=== PATIENT | female | born 1975 | race Caucasian/White ===

== ENCOUNTER → 2016-07-18 | Outpatient (CLI) | payer OTHER ==
--- NOTE | 2016-07-18 10:41 | CT ---
EXAMINATION TYPE: CT abdomen pelvis wo con DATE OF EXAM: 07/18/2016 10:07 AM COMPARISON: 03/09/2010 INDICATION: Lt flank pain, bladder pain DLP: 479.4 mGycm, Automated exposure control for dose reduction was used. CONTRAST: None Study performed without Oral Contrast TECHNIQUE: Axial images were obtained from above the diaphragm to the pubic rami in the axial plane a t 5 mm thick sections. Reconstructed images are reviewed on the computer in the coronal plane. FINDINGS: Limited CT sections are obtained the lung bases. The lung bases are clear. CT ABDOMEN: There are mesenteric fat containing anterior abdominal hernia in the epigastric region wi th an opening of 2.8 cm. Liver: There is a 2.1 cm hypodensity measuring 12 Hounsfield units adjacent to the right kidney. This appears to be a hepatic cyst on the coronal plane images although an exophytic renal cyst could be w ithin the differential in the axial plane. Spleen: Normal Pancreas: Normal Adrenal glands: The adrenal glands are normal. Gallbladder: Surgically absent Kidneys: No masses are evident. No hydronephrosis is present. Possible exophytic cyst may be at the inferior pole right kidney Aorta: Normal Inferior vena cava: Normal. CT PELVIS: Loops of bowel within the abdomen and pelvis are normal. Couple of small diverticuli may be withi n the sigmoid colon. Appendix: Not clearly identified. There may be surgical suture in the right lower quadrant. Urinary bladder: Decompressed with limited evaluation. Genitourinary structures: Uterus is not identified. Adnexal regions. Within normal limits. Some very minimal pelvic fluid may be present. This could be physiologic. Osseous structures: No suspicious lytic or sclerotic lesions. Degenerative sacroiliac joint changes a re present. Facet degenerative changes are present. IMPRESSIONS: 1. Hepatic cyst versus exophytic renal cyst. This area has enlarged from 2009. 2. Small epigastric mesenteric fat containing abdominal wall hernia. This was present previously.
== END | disposition home or self-care (01) ==
LOC: RADCTMAIN 09:49
PROVIDERS: ATTEND Physician Assistant Medical
DX: K43.9 Ventral hernia without obstruction or gangrene (principal); R10.9 Unspecified abdominal pain; Z87.442 Personal history of urinary calculi
CPT/HCPCS: 74176

== ENCOUNTER → 2016-08-06 | Outpatient (CLI) | payer OTHER ==
--- NOTE | 2016-08-06 22:28 | MR ---
MR abdomen with and without contrast HISTORY: Abnormal findings, liver disease Correlation to CT abdomen pelvis 18 July 2016 Multiplanar multisequence and postcontrast images obtained through the abdomen following 14 cc MultiH ance IV. Patient is status post cholecystectomy. The cyst within the right lobe of the liver is again noted an d shows a stable appearance measuring approximately 2.9 cm in greatest dimension showing a bilobed ap pearance. There is no biliary ductal dilation. The liver is enlarged. Signal drop on out of phase roxana ging within the liver suggests fatty infiltration of the liver. No abnormal enhancement. The spleen i s unremarkable. The kidneys and adrenal glands, pancreas are unremarkable. No retroperitoneal adenopa thy, or ascites. Small ventral abdominal wall hernia contains fat. IMPRESSION: Simple hepatic cyst. Hepatomegaly, possible fatty infiltration of the liver. Postop barry luu. Anterior abdominal wall hernia.
== END | disposition home or self-care (01) ==
LOC: RADMRIMAIN 20:43
PROVIDERS: ATTEND Family Medicine
DX: K76.89 Other specified diseases of liver (principal); R16.0 Hepatomegaly, not elsewhere classified; K43.9 Ventral hernia without obstruction or gangrene; Z98.890 Other specified postprocedural states
CPT/HCPCS: 74183; A9577

== ENCOUNTER 2016-10-24 12:19 | Emergency (ER) | payer OTHER ==
[2016-10-24 12:42] VITALS: RESP 16
[2016-10-24] MEDS ORDERED: SODIUM CHLORIDE 0.9% 2,000 ML IV STA (13:11)
--- NOTE | 2016-10-24 13:20 | ED ---
Abdominal Pain HPI - General Chief Complaint: Abdominal Pain Stated Complaint: Abd Pain Time Seen by Provider: 10/24/16 12:53 Source: patient, family, RN notes reviewed Mode of arrival: wheelchair Limitations: no limitations - History of Present Illness Initial Comments: This a 40-year-old female presented emergency Department chief complaint of abdominal pain, nausea diarrhea. Patient states her symptoms, started 2 days ago. Patient states that she's concerned as she has a new puppy diagnosed with Giardia. She states she's having extreme loose watery diarrhea. Patient states that she's had multiple episodes daily denies any melena or hematochezia. Patient denies any vomiting including his emesis or coffee- ground emesis. Patient denies fever or chills. She states that she's having spasms in her epigastric region and also some back pain. Patient states that she felt that she had some tachycardia yesterday in which she states she sees Dr. Bobby for but denies any chest pain or palpitations at this time. Patient denies any dysuria hematuria. 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 - Related Data Home Medications Medication Instructions Recorded Confirmed Ibuprofen [Motrin] 800 mg PO Q8HR PRN 10/06/14 10/24/16 ALPRAZolam [Xanax] 0.25 mg PO DAILY PRN 10/25/14 10/24/16 Escitalopram Oxalate [Lexapro] 10 mg PO HS 10/24/16 10/24/16 Previous Rx's Medication Instructions Recorded Dicyclomine [Bentyl] 20 mg PO TID #30 tablet 10/24/16 metroNIDAZOLE [Flagyl] 500 mg PO TID #21 tab 10/24/16 Allergies Allergy/AdvReac Type Severity Reaction Status Date / Time codeine Allergy Unknown Verified 10/24/16 13:01 latex Allergy Swelling/Bu Verified 10/24/16 13:01 rning morphine Allergy Nausea & Verified 10/24/16 13:01 Vomiting naproxen Allergy Swelling Verified 10/24/16 13:01 Review of Systems ROS Statement: Those systems with pertinent positive or pertinent negative responses have been documented in the HPI. ROS Other: All systems not noted in ROS Statement are negative. Past Medical History Past Medical History: Hearing Disorder / Deafness, Mitral Valve Prolapse (MVP), Osteoarthritis (OA) Additional Past Medical History / Comment(s): TRICUSPID PROLAPSE, SL MVP; PULMONARY HTN. WAS HAVING PROB W/ DIZZYNESS, BALANCE PROB - RESOLVED; SOME DYSPNEA OCC. LATER FOUND SHE HAD MIDDLE EAR INFECTION, COMPLETED PO AB RX. SOME DECR HEARING IN LT EAR. KIDNEY STONES FREQ. HAS VARICOSE VEINS History of Any Multi-Drug Resistant Organisms: None Reported Past Surgical History: Appendectomy, Cholecystectomy, Hernia Repair, Hysterectomy Additional Past Surgical History / Comment(s): removed kidney stone Past Anesthesia/Blood Transfusion Reactions: Motion Sickness, Postoperative Nausea & Vomiting (PONV) Past Psychological History: Anxiety, Depression, Panic Disorder Smoking Status: Never smoker Past Alcohol Use History: None Reported Past Drug Use History: None Reported - Past Family History Father Family Medical History: Cancer, Coronary Artery Disease (CAD), Deep Vein Thrombosis (DVT) Additional Family Medical History / Comment(s): stroke, quadrupel bypass, carotid surgery - FROM BLOOD CLOT FROM CAROTID TO BRAIN. Mother Additional Family Medical History / Comment(s): ANXIETY General Exam Limitations: no limitations General appearance: alert, in no apparent distress Head exam: Present: atraumatic, normocephalic, normal inspection Eye exam: Present: normal appearance, PERRL, EOMI. Absent: scleral icterus, conjunctival injection, periorbital swelling Respiratory exam: Present: normal lung sounds bilaterally. Absent: respiratory distress, wheezes, rales, rhonchi, stridor Cardiovascular Exam: Present: regular rate, normal rhythm, normal heart sounds. Absent: systolic murmur, diastolic murmur, rubs, gallop, clicks GI/Abdominal exam: Present: soft, tenderness (Mild epigastric), normal bowel sounds. Absent: distended, guarding, rebound, rigid Back exam: Absent: CVA tenderness (R), CVA tenderness (L) Neurological exam: Present: alert, CN II-XII intact Skin exam: Present: warm, dry, intact, normal color. Absent: rash Course Vital Signs 10/24/16 12:40 Temperature 98.2 F Pulse Rate 94 Respiratory 16 Rate Blood Pressure 125/74 O2 Sat by Pulse 97 Oximetry Medical Decision Making - Medical Decision Making 40-year-old female presented for diarrhea abdominal discomfort. Patient is currently him some bowel spasms related to her diarrhea. She does feel better after Bentyl. Patient has concerns about Giardia. Patient be given Flagyl at this time. Patient C. diff testing is not back Flagyl as prescribed. Patient will follow-up with primary care physician for recheck and results. - Lab Data Result diagrams: 10/24/16 13:40 10/24/16 13:40 Lab Results 10/24/16 10/24/16 10/24/16 Range/Units 13:40 13:40 14:02 WBC 10.4 (3.8-10.6) k/uL RBC 5.24 (3.80-5.40) m/uL Hgb 16.3 H (11.4-16.0) gm/dL Hct 49.0 H (34.0-46.0) % MCV 93.5 (80.0-100.0) fL MCH 31.1 (25.0-35.0) pg MCHC 33.3 (31.0-37.0) g/dL RDW 12.5 (11.5-15.5) % Plt Count 221 (150-450) k/uL Neutrophils % (Manual) 79.0 % Band Neutrophils % 1.0 % Lymphocytes % (Manual) 13.0 % Monocytes % (Manual) 6.0 % Eosinophils % (Manual) 1.0 % Neutrophils # (Manual) 8.3 H (1.3-7.7) k/uL Lymphocytes # (Manual) 1.4 (1.0-4.8) k/uL Monocytes # (Manual) 0.6 (0-1.0) k/uL Eosinophils # (Manual) 0.1 (0-0.7) k/uL Nucleated RBCs 0 (0-0) /100 WBC Manual Slide Review Performed RBC Morphology Normal Sodium 140 (137-145) mmol/L Potassium 3.5 (3.5-5.1) mmol/L Chloride 107 (98-107) mmol/L Carbon Dioxide 21 L (22-30) mmol/L Anion Gap 12 mmol/L BUN 11 (7-17) mg/dL Creatinine 0.67 (0.52-1.04) mg/dL Est GFR (MDRD) Af Amer >60 (>60 ml/min/1.73 sqM) Est GFR (MDRD) Non-Af >60 (>60 ml/min/1.73 sqM) Glucose 95 (74-99) mg/dL Calcium 9.0 (8.4-10.2) mg/dL Total Bilirubin 0.6 (0.2-1.3) mg/dL AST 22 (14-36) U/L ALT 23 (9-52) U/L Alkaline Phosphatase 75 (38-126) U/L Total Protein 8.0 (6.3-8.2) g/dL Albumin 4.2 (3.5-5.0) g/dL Amylase 49 (30-110) U/L Lipase 42 (23-300) U/L Urine Color Yellow Urine Appearance Cloudy H (Clear) Urine pH 5.5 (5.0-8.0) Ur Specific [place] 1.018 (1.001-1.035) Urine Protein 1+ H (Negative) Urine Glucose (UA) Negative (Negative) Urine Ketones 2+ H (Negative) Urine Blood Trace H (Negative) Urine Nitrite Negative (Negative) Urine Bilirubin Negative (Negative) Urine Urobilinogen <2.0 (<2.0) mg/dL Ur Leukocyte Esterase Negative (Negative) Urine RBC 1 (0-5) /hpf Urine WBC 4 (0-5) /hpf Ur Squamous Epith Cells 22 H (0-4) /hpf Urine Bacteria Occasional H (None) /hpf Urine Mucus Occasional H (None) /hpf Disposition Clinical Impression: Abdominal pain, Diarrhea Disposition: HOME SELF-CARE Condition: Stable Instructions: Abdominal Pain (ED) Additional Instructions: Please return to the Emergency Department if symptoms worsen or any other concerns. Prescriptions: Dicyclomine [Bentyl] 20 mg PO TID #30 tablet metroNIDAZOLE [Flagyl] 500 mg PO TID #21 tab Time of Disposition: 15:06
[2016-10-24 14:03] LABS: Aty Lym Flag Slight; CH 32.3; CHCM 34.7; HDW 2.46; HGB 16.3 gm/dL (11.4-16.0); MCH 31.1 pg (25.0-35.0); MCHC 33.3 g/dL (31.0-37.0); MCV 93.5 fL (80.0-100.0); Mean Platelet Volume 7.7; RBC 5.24 m/uL (3.80-5.40); RDW 12.5 % (11.5-15.5); WBC 10.4 k/uL (3.8-10.6); WBC (Perox) 9.86
[2016-10-24 14:06] LABS: ALT 23 U/L (9-52); AST 22 U/L (14-36); Alkaline Phosphatase 75 U/L (38-126); Amylase 49 U/L (30-110); Anion Gap 12 mmol/L; Blood Urea Nitrogen 11 mg/dL (7-17); Carbon Dioxide 21 mmol/L (22-30); Chloride 107 mmol/L (98-107); Glucose 95 mg/dL (74-99); Non-African American GFR(MDRD) >60 (>60 ml/min/1.73 sqM); Potassium 3.5 mmol/L (3.5-5.1); Sodium 140 mmol/L (137-145); Total Bilirubin 0.6 mg/dL (0.2-1.3)
[2016-10-24 14:19] LABS: Appearance,Urine Cloudy (Clear); Bacteria,Urine Occasional /hpf; Bilirubin,Urine Negative (Negative); Glucose,Urine (UA) Negative (Negative); Ketones,Urine 2+ (Negative); Leukocyte Esterase,Urine Negative (Negative); Mucus,Urine Occasional /hpf; Nitrite,Urine Negative (Negative); PH, Urine 5.5 (5.0-8.0); Particle Count 11570; Protein,Urine 1+ (Negative); RBC,Urine 1 /hpf (0-5); Specific Gravity,Urine 1.018 (1.001-1.035); Squamous Epithelial Cell,Urine 22 /hpf (0-4); UA Billing (MACRO vs. MICRO) MICRO; Urobilinogen,Urine <2.0 mg/dL (<2.0); WBC,Urine 4 /hpf (0-5)
--- NOTE | 2016-10-24 14:27 | XR ---
EXAMINATION TYPE: XR KUB DATE OF EXAM: 10/24/2016 2:14 PM COMPARISON: June 24, 2012 HISTORY: Pain TECHNIQUE: Single supine KUB image of the abdomen is obtained FINDINGS: Small bowel demonstrates no evidence for dilatation or air fluid levels. Gas and fecal material is seen in non-distended colon. No convincing evidence for pneumoperitoneum. No unusual calcifications. The lung bases are clear. Cholecystectomy clips noted. The osseous structures are intact. IMPRESSION: 1. Overall nonobstructive bowel gas pattern.
[2016-10-24 14:29] LABS: Add Differential Manual Differential
[2016-10-24] MEDS ORDERED: DICYCLOMINE 20 MG TAB PO STA (14:29)
[2016-10-24 14:33] LABS: Manual Review Performed; Nucleated Red Blood Cells 0 /100 WBC (0-0); RBC Morphology Normal; Total Cells Counted 100
[2016-10-24 15:47] VITALS: BP 116/56; PULSE 76; TEMP 98.8
== END 2016-10-24 15:46 | disposition home or self-care (01) ==
LOC: EC 12:19
DX: R19.7 Diarrhea, unspecified (principal); R10.13 Epigastric pain; R11.0 Nausea; M54.9 Dorsalgia, unspecified; F41.9 Anxiety disorder, unspecified; F32.9 Major depressive disorder, single episode, unspecified; Z79.899 Other long term (current) drug therapy; Z88.5 Allergy status to narcotic agent; Z88.6 Allergy status to analgesic agent; Z91.040 Latex allergy status; Z90.49 Acquired absence of other specified parts of digestive tract
CPT/HCPCS: 36415; 74000; 80053; 81001; 82150; 83690; 85025; 87045; 87046; 87324; 87329; 89055; 96360; 96361; 99284

== ENCOUNTER 2018-12-17 18:34 | Inpatient (IN) | payer OTHER ==
[2018-12-17] MEDS ORDERED: ASPIRIN 81 MG PO STA (18:57)
[2018-12-17] MEDS ORDERED: NITROGLYCERIN SL TABS 0.4 MG TAB SUBLINGUAL STA (18:57)
[2018-12-17 19:16] LABS: Basophils # (A) 0.1 k/uL (0-0.2); Basophils % (A) 1 %; Eosinophils # (A) 0.1 k/uL (0-0.7); Eosinophils % (A) 1 %; HCT 46.7 % (34.0-46.0); HGB 15.3 gm/dL (11.4-16.0); Lymphocytes # (A) 2.2 k/uL (1.0-4.8); Lymphocytes % (A) 21 %; MCH 30.3 pg (25.0-35.0); MCHC 32.8 g/dL (31.0-37.0); MCV 92.3 fL (80.0-100.0); Monocytes # (A) 0.7 k/uL (0-1.0); Monocytes % (A) 6 %; Neutrophils # (A) 7.3 k/uL (1.3-7.7); Neutrophils % (A) 68 %; Platelet Count 279 k/uL (150-450); RBC 5.05 m/uL (3.80-5.40); RDW 12.3 % (11.5-15.5); WBC 10.6 k/uL (3.8-10.6)
[2018-12-17 19:25] LABS: ALT 25 U/L (9-52); AST 19 U/L (14-36); African American GFR (CKD) >90 (>60 ml/min/1.73 sqM); Albumin 4.2 g/dL (3.5-5.0); Alkaline Phosphatase 58 U/L (38-126); Anion Gap 8 mmol/L; Blood Urea Nitrogen 11 mg/dL (7-17); Calcium 9.1 mg/dL (8.4-10.2); Carbon Dioxide 25 mmol/L (22-30); Chloride 105 mmol/L (98-107); Glucose 89 mg/dL (74-99); Lipase 45 U/L (23-300); Magnesium 1.8 mg/dL (1.6-2.3); Potassium 3.8 mmol/L (3.5-5.1); Sodium 138 mmol/L (137-145); Total Bilirubin 0.5 mg/dL (0.2-1.3); Total Protein 7.1 g/dL (6.3-8.2)
[2018-12-17 19:28] LABS: D-Dimer 0.25 mg/L FEU (<0.60); INR 0.9 (<1.2); Partial Thromboplastin Time 23.9 sec (22.0-30.0)
--- NOTE | 2018-12-17 19:54 | ED ---
Chest Pain HPI - General Chief Complaint: Chest Pain Stated Complaint: Chest pain Time Seen by Provider: 12/17/18 18:47 Source: patient, RN notes reviewed Mode of arrival: wheelchair Limitations: no limitations - History of Present Illness Initial Comments: This a 43-year-old female who presents with complaints of chest pain. She states she's been having intermittent episodes of this with palpitations or last several weeks. They getting worse she denies discomfort radiating down her left arm some to her jaw some to her back she states it feels like a heaviness. It is worse is 10/10 in severity currently is 6/10 she states she feels anxious and short of breath with it no fevers chills nausea vomiting sweats or other symptoms. She has no personal history of heart disease does not smoke cigarettes does not drink alcohol no family history of early heart disease reported. She has had hysterectomy and does not use control pills. No other modifying factors no recent strenuous activity he could've strained her upper chest wall. MD Complaint: chest pain - Related Data Home Medications Medication Instructions Recorded Confirmed Ibuprofen [Motrin] 800 mg PO Q8HR PRN 10/06/14 12/17/18 ALPRAZolam [Xanax] 0.25 mg PO DAILY PRN 10/25/14 12/17/18 Atenolol [Tenormin] 25 mg PO DAILY 12/17/18 12/17/18 Escitalopram [Lexapro] 20 mg PO DAILY 12/17/18 12/17/18 valACYclovir HCL [Valtrex] 2,000 mg PO BID PRN 12/17/18 12/17/18 Allergies Allergy/AdvReac Type Severity Reaction Status Date / Time codeine Allergy Unknown Verified 12/17/18 19:09 latex Allergy Swelling/Bu Verified 12/17/18 19:09 rning morphine Allergy Nausea & Verified 12/17/18 19:09 Vomiting naproxen Allergy Swelling Verified 12/17/18 19:09 Review of Systems ROS Statement: Those systems with pertinent positive or pertinent negative responses have been documented in the HPI. ROS Other: All systems not noted in ROS Statement are negative. EKG Findings - EKG Results: EKG: interpreted by SYLVIA, sinus rhythm (Sinus rhythm a 68 appear interval 166 QRS duration 98 QT since QTC 426/[address]-T wave changes) Past Medical History Past Medical History: Hearing Disorder / Deafness, Mitral Valve Prolapse (MVP), Osteoarthritis (OA) Additional Past Medical History / Comment(s): TRICUSPID PROLAPSE, SL MVP; PULMONARY HTN. WAS HAVING PROB W/ DIZZYNESS, BALANCE PROB - RESOLVED; SOME DYSPNEA OCC. LATER FOUND SHE HAD MIDDLE EAR INFECTION, COMPLETED PO AB RX. SOME DECR HEARING IN LT EAR. KIDNEY STONES FREQ. HAS VARICOSE VEINS History of Any Multi-Drug Resistant Organisms: None Reported Past Surgical History: Appendectomy, Cholecystectomy, Hernia Repair, Hysterectomy Additional Past Surgical History / Comment(s): removed kidney stone Past Anesthesia/Blood Transfusion Reactions: Motion Sickness, Postoperative Nausea & Vomiting (PONV) Past Psychological History: Anxiety, Depression, Panic Disorder Smoking Status: Never smoker Past Alcohol Use History: None Reported Past Drug Use History: None Reported - Past Family History Father Family Medical History: Cancer, Coronary Artery Disease (CAD), Deep Vein Thrombosis (DVT) Additional Family Medical History / Comment(s): stroke, quadrupel bypass, carotid surgery - FROM BLOOD CLOT FROM CAROTID TO BRAIN. Mother Additional Family Medical History / Comment(s): ANXIETY General Exam - General Exam Comments Initial Comments: This is a well-developed well-nourished awake alert oriented 3 female Limitations: no limitations General appearance: alert, anxious Head exam: Present: atraumatic, normocephalic, normal inspection Eye exam: Present: normal appearance, PERRL, EOMI. Absent: scleral icterus, conjunctival injection, periorbital swelling ENT exam: Present: normal exam, mucous membranes moist Neck exam: Present: normal inspection. Absent: tenderness, meningismus, lymphadenopathy Respiratory exam: Present: normal lung sounds bilaterally. Absent: respiratory distress, wheezes, rales, rhonchi, stridor Cardiovascular Exam: Present: regular rate, normal rhythm, normal heart sounds. Absent: systolic murmur, diastolic murmur, rubs, gallop, clicks GI/Abdominal exam: Present: soft, normal bowel sounds. Absent: distended, tenderness, guarding, rebound, rigid Extremities exam: Present: normal inspection, full ROM, normal capillary refill. Absent: tenderness, pedal edema, joint swelling, calf tenderness Back exam: Present: normal inspection Neurological exam: Present: alert, oriented X3, CN II-XII intact Psychiatric exam: Present: normal affect, normal mood Skin exam: Present: warm, dry, intact, normal color. Absent: rash Course Vital Signs 12/17/18 12/17/18 12/17/18 18:39 19:05 19:42 Temperature 98.5 F Pulse Rate 83 70 Respiratory 18 18 Rate Blood Pressure 110/68 127/78 119/63 O2 Sat by Pulse 98 97 Oximetry - Reevaluation(s) Reevaluation #1: 12/17/18 20:49 I did reevaluate the patient after the initial treatment she did feel totally relieved of all her issues after one nitroglycerin no more chest tightness shortness breath no more dizziness no other symptoms. She feels better now that she has since 4 days ago when she believes the symptoms and she started. Chest Pain MDM - MDM I did review the imaging and report no acute findings are seen. Patient did get total resolution of her symptoms after nitroglycerin. I did have a long discussion with her family members regarding the findings patient will be admitted for cardiology consultation. The presentation is consistent with acute coronary syndrome/unstable angina I did discuss case with Dr. Hernandez. Critical Care Time Critical Care Time: Yes Critical Care Time: 31 minutes of critical care time which includes initial presentation with hist ory physical labs x-rays multiple re-evaluations patient response to therapy discuss with the patient family regarding findings discussion with the main physician admission orders and documentation of the above Disposition Clinical Impression: Unstable angina pectoris, Acute coronary syndrome Disposition: ADMITTED IP TO THIS HOSP Condition: Stable Referrals: Jose Diaz DO [Primary Care Provider] - 1-2 days
--- NOTE | 2018-12-17 19:59 | XR ---
EXAMINATION TYPE: XR chest 2V DATE OF EXAM: 12/17/2018 COMPARISON: NONE HISTORY: 10/05/2014 TECHNIQUE: Frontal and lateral views of the chest are obtained. FINDINGS: Heart and mediastinum are normal. Lungs are clear. Diaphragm is normal. Bony thorax is nor mal. IMPRESSION: Normal chest. No change.
[2018-12-17] MEDS ORDERED: ACETAMINOPHEN TAB 325 MG TAB PO PRN (20:50)
[2018-12-17] MEDS ORDERED: HEPARIN SODIUM,PORCINE 5,000 UNIT/ML 1 ML VIAL IV ONE (20:50)
[2018-12-17] MEDS ORDERED: NITROGLYCERIN SL TABS 0.4 MG TAB SUBLINGUAL PRN (20:50)
[2018-12-17] MEDS ORDERED: ALPRAZolam 0.25 MG TAB PO PRN (20:53)
[2018-12-17] MEDS ORDERED: HEPARIN SOD,PORK IN 0.45% NACL 25,000 UNIT in 0.45% NACL 1 250ML.BAG IV SCH (21:00)
[2018-12-17] MEDS: SODIUM CHLORIDE 0.9% 1,000 ML IV SCH (21:13)
[2018-12-17 22:46] VITALS: BMI 34.0
[2018-12-18 04:05] LABS: Cholesterol 177 mg/dL (<200); HDL Cholesterol 35 mg/dL (40-60); LDL Cholesterol,Calculated 107 mg/dL (0-99); Triglycerides 174 mg/dL (<150)
[2018-12-18] MEDS: NITROGLYCERIN OINT 1 INCH/GM PACKET TOPICAL SCH ×5 (05:14→23:44)
[2018-12-18] MEDS ORDERED: ASPIRIN 325 MG TAB PO SCH (09:00)
[2018-12-18] MEDS ORDERED: ATORVASTATIN 80 MG TAB PO SCH (09:00)
--- NOTE | 2018-12-18 12:07 | CONS ---
CONSULTATION Mrs. Hammonds is a 43-year-old female who is seen for the evaluation of chest pain. This patient gives a history that for last 1 month to 6 weeks she has been having intermittent heart fluttering and palpitations. She feels that her heart is skipping beats and then she has a flushed feeling. She also felt quite anxious. Over the last couple of days, she has been having intermittent chest pressure with pressure in the back and the pressure in the arm, which comes and goes. It is not related to exertion. In view of the recurrent chest discomfort, she came to the hospital and is admitted. Patient denied any nausea, vomiting or any other symptoms. Patient does not have any prior history of coronary artery disease. She does not smoke. Her cholesterol is normal. This patient was evaluated about 3 to 4 years ago with symptoms of dizziness and palpitations and patient had extensive workup done, which was unremarkable. The patient's father had heart attack at the age of 72. Patient denies any history of recent syncope. She had a tilt-table test done in the past, which was normal. PATIENT'S HOME MEDICATIONS INCLUDE: Motrin, Xanax, Tenormin, Lexapro, Valtrex. PAST MEDICAL HISTORY: Includes history of possible mitral valve prolapse, history of mild pulmonary hypertension. Patient had a echocardiogram done about a couple of years ago in [place], appendicectomy, cholecystectomy, hernia repair and hysterectomy. History of motion sickness. Postoperatively, nausea and vomiting. PSYCHOLOGICAL HISTORY: History of anxiety, depression and panic disorder. SMOKING HISTORY: Patient was never a smoker. PHYSICAL EXAMINATION: Reveals a 43-year-old female who is not in any acute distress. Blood pressure is 110/68 mmHg. HEENT examination is negative. Neck is supple. There is no increase in jugular venous pressure. Both the carotid pulses are felt, there is no bruit. Chest is symmetrical. Heart, the PMI is not felt. First and second heart sounds are normal. There is no evidence of any murmur. Lungs are clinically clear to auscultation and percussion. Abdomen is negative. Extremities, peripheral pulsations are 2+. EKG shows normal sinus rhythm without any acute ischemic changes. Patient's D-dimer is normal. Electrolytes are normal. The 3 sets of troponins are normal. Patient's cholesterol is 177 with HDL level of 35 and LDL level is 107. IMPRESSION: 1. This patient has been having intermittent chest discomfort at rest, which comes and goes and it is suggestive of atypical angina. Patient does not have any coronary risk factors. 2. History of palpitations. The patient's EKGs and cardiac enzymes are normal. We will evaluate the patient with a stress Cardiolite study to rule out any significant cardiac ischemia. Echo and Doppler study will be done. We will continue the patient on Tenormin at present. MMODL / IJN: [id number] /
--- NOTE | 2018-12-18 14:13 | EST ---
EXERCISE STRESS DATE OF SERVICE: 12/18/2018 AGE: 43 SEX: Female HT: 5'2" WT: 186 pounds PROTOCOL: Cardiolite Enrico STAGE: IV DURATION OF EXERCISE: 10 minutes HEART RATE REST: 72 BLOOD PRESSURE REST: 158/82 MAXIMUM HEART RATE ACHIEVED: 154 MAXIMUM BLOOD PRESSURE: 200/64 85% MPHR: 149 100% MPHR: 175 METS: 11.9 INDICATIONS: Chest pain, unstable angina. CLINICAL INFORMATION: Patient was exercised for a total period of 10 minutes. Peak heart rate of 154 was achieved. Maximum blood pressure of 200/64 mmHg was note. Resting EKG shows normal sinus rhythm with normal CO interval and QRS duration and normal ST-T waves. No ST- segment depression suggestive of ischemia was noted. In the postexercise period, patient complained of mild neck pain. No EKG changes were noted. FINAL IMPRESSION: 1. This exercise EKG is not suggestive of ischemia. 2. Patient's exercise tolerance is normal. 3. The results of the nuclear study will follow. MMODL / IJN: [id number] /
--- NOTE | 2018-12-18 14:16 | NM ---
EXAMINATION TYPE: NM stress cardiolite complete DATE OF EXAM: 12/18/2018 COMPARISON: NONE HISTORY: Chest pain TECHNIQUE: After the intravenous administration of 10.22 mCi Tc 99m Sestamibi - Rest images obtained 45 minutes post injection. The patient exercised using a MALGORZATA protocol and 1 minute prior to peak exercise was injected with 25.1 mCi Tc 99m Sestamibi - Stress images obtained 5 minutes post injecti on. FINDINGS: Targeted heart rate was achieved during performance of the study. Review of stress and rest SPECT roxana ges demonstrates some decreased uptake along the septum, inferior septal wall towards the base of the heart on stress as compared to rest images. Gated analysis shows normal wall motion with an estimat ed left ventricular ejection fraction of 56 %. IMPRESSION: Stress induced left ventricular myocardial ischemia.
[2018-12-18] MEDS: ESCITALOPRAM 20 MG TAB PO SCH (14:30)
[2018-12-18] MEDS: ATENOLOL 25 MG TAB PO SCH (14:30)
[2018-12-18] MEDS ORDERED: ENOXAPARIN 80 MG/0.8 ML SYRINGE SQ STA (20:41)
[2018-12-18] MEDS ORDERED: ZOLPIDEM 5 MG TAB PO PRN (20:43)
[2018-12-18] MEDS: ASPIRIN 81 MG PO SCH (21:35)
[2018-12-18] MEDS: SODIUM CHLORIDE 0.9% 1,000 ML IV SCH ×2 (21:35→21:36)
--- NOTE | 2018-12-18 22:22 | P.HPIM ---
History of Present Illness H&P Date: 12/18/18 Chief Complaint: Chest pain Patient is a 39-year-old female with a known history of mitral valve prolapse, osteoarthritis, anxiety/depression and panic disorder came to ER with the complaints of chest pain intermittently for the past 2 weeks. Patient says that on Friday she felt like heart beating of fast and palpitations along with flushing of the face and felt left shoulder pain and could not squeeze her fingers. Patient does have a history of anxiety and panic disorders. Patient thought she was having symptoms of menopause. Next morning patient went to see her PCP and was started on beta blockers and EKG was done which showed no acute abnormalities. Yesterday patient after completing Full day of work came home and landed on the bed. Certainly she was started having heaviness in the chest, squeezing-like BP cuff and felt left arm pain and also jaw was hurting. Patient was also short of breath. Patient felt nauseated and diaphoretic. Patient came to ER for evaluation. Patient did have elevated temperature of chest pain while in the ER. Patient says that she has been feeling weak and tired recently. Denied history of smoking or alcohol use Patient does have a family history of coronary artery disease Chest x-ray showed no acute cardio pulmonary process EKG showed normal sinus rhythm Troponin 1 negative. BNP is 18 and d-dimer is not elevated. Review of Systems Constitutional: Patient denies any fever or chills . No generalized weakness or weight loss. Abdomen: Patient denied nausea vomiting and diarrhea and abdominal pain. Cardiovascular: Patient does have chest tightness and palpitations. Respiratory: patient denied any cough is from production. No shortness of breath Neurologic: Patient denied any numbness or tingling headache. Musculoskeletal: Patient denies any complaints of joint swelling or deformity. Skin: Negative Psychiatric: Negative Endocrine: No heat or cold intolerance. No recent weight gain. Genitourinary: No dysuria or hematuria. All other 14 point ROS negative except the above Past Medical History Past Medical History: Hearing Disorder / Deafness, Mitral Valve Prolapse (MVP), Osteoarthritis (OA) Additional Past Medical History / Comment(s): TRICUSPID PROLAPSE, SL MVP; PULMONARY HTN. WAS HAVING PROB W/ DIZZYNESS, BALANCE PROB - RESOLVED; SOME DYSPNEA OCC. LATER FOUND SHE HAD MIDDLE EAR INFECTION, COMPLETED PO AB RX. SOME DECR HEARING IN LT EAR. KIDNEY STONES, HAS VARICOSE VEINS History of Any Multi-Drug Resistant Organisms: None Reported Past Surgical History: Appendectomy, Cholecystectomy, Hernia Repair, Hysterectomy Additional Past Surgical History / Comment(s): removed kidney stone Past Anesthesia/Blood Transfusion Reactions: Motion Sickness, Postoperative Nausea & Vomiting (PONV) Past Psychological History: Anxiety, Depression, Panic Disorder Smoking Status: Never smoker Past Alcohol Use History: None Reported Past Drug Use History: None Reported - Past Family History Father Family Medical History: Cancer, Coronary Artery Disease (CAD), Deep Vein Thrombosis (DVT) Additional Family Medical History / Comment(s): stroke, quadrupel bypass, carotid surgery - FROM BLOOD CLOT FROM CAROTID TO BRAIN. Mother Additional Family Medical History / Comment(s): ANXIETY Medications and Allergies Home Medications Medication Instructions Recorded Confirmed Type Ibuprofen [Motrin] 800 mg PO Q8HR PRN 10/06/14 12/17/18 History ALPRAZolam [Xanax] 0.25 mg PO DAILY PRN 10/25/14 12/17/18 History Atenolol [Tenormin] 25 mg PO DAILY 12/17/18 12/17/18 History Escitalopram [Lexapro] 20 mg PO DAILY 12/17/18 12/17/18 History valACYclovir HCL [Valtrex] 2,000 mg PO BID PRN 12/17/18 12/17/18 History Allergies Allergy/AdvReac Type Severity Reaction Status Date / Time codeine Allergy Unknown Verified 12/17/18 19:09 latex Allergy Swelling/Bu Verified 12/17/18 19:09 rning morphine Allergy Nausea & Verified 12/17/18 19:09 Vomiting naproxen Allergy Swelling Verified 12/17/18 19:09 Physical Exam Vitals: Vital Signs Temp Pulse Pulse Resp BP BP Pulse Ox 12/18/18 08:00 16 12/18/18 07:53 98.5 F 82 16 107/72 97 12/18/18 04:00 97.7 F 65 18 103/69 97 12/17/18 22:48 98.1 F 67 18 118/75 96 12/17/18 21:08 18 12/17/18 21:07 86 18 131/83 97 12/17/18 21:02 84 18 98 12/17/18 19:42 119/63 12/17/18 19:05 70 18 127/78 97 12/17/18 18:39 98.5 F 83 18 110/68 98 Intake and Output 12/17/18 12/18/18 12/18/18 22:59 06:59 14:59 Intake Total 80.486 Output Total 100 Balance -100 80.486 Intake: Intake, IV Titration 80.486 Amount Heparin Sod,Pork in 0.45% 80.486 NaCl 25,000 unit In 0.45 % NaCl 1 250ml.bag @ 12 UNITS/KG/HR 10.124 mls/hr IV .Q24H [facility] Rx#: [id number] Output: Urine 100 Other: Voiding Method Toilet Weight 84.368 kg PHYSICAL EXAMINATION: Patient is lying in the bed comfortably, no acute distress, awake alert and oriented.. HEENT: Normocephalic. Neck is supple. Pupils reactive. Nostrils clear. Oral cavity is moist. Ears reveal no drainage. Neck reveals no JVD, carotid bruits, or thyromegaly. CHEST EXAMINATION: Trachea is central. Symmetrical expansion. Lung bryant clear to auscultation and percussion. CARDIAC: Normal S1, S2 with no gallops. No murmurs ABDOMEN: Soft. Bowel sounds normal. No organomegaly. No abdominal bruits. Extremities: reveal no edema. No clubbing or cyanosis Neurologically awake, alert, oriented x3 with well-coordinated movements. No focal deficits noted Skin: No rash or skin lesions. Psychiatric: Coperative. Nonsuicidal Musculoskeletal: No joint swelling or deformity. Normal range of motion. Results CBC & Chem 7: 12/17/18 19:04 12/17/18 19:04 Labs: Abnormal Lab Results - Last 24 Hours (Table) 12/17/18 12/18/18 12/18/18 Range/Units 19:04 03:22 03:22 Hct 46.7 H (34.0-46.0) % APTT 39.0 H (22.0-30.0) sec Triglycerides 174 H (<150) mg/dL LDL Cholesterol, Calc 107 H (0-99) mg/dL HDL Cholesterol 35 L (40-60) mg/dL Thrombosis Risk Factor Assmnt - DVT/VTE Prophylaxis DVT/VTE Prophylaxis: Pharmacologic Prophylaxis ordered - Choose All That Apply Any of the Below Risk Factors Present?: Yes Each Factor Represents 1 point: Age 41-60 years Other Risk Factors: No Other congenital or acquired thrombophilia - If yes, enter type in comment: No Thrombosis Risk Factor Assessment Total Risk Factor Score: 1 Thrombosis Risk Factor Assessment Level: Low Risk Assessment and Plan Assessment: Chest pain possible unstable angina. Mitral valve prolapse Hearing disorder/deafness Pulmonary hypertension History of renal stones Anxiety/depression and panic disorder Plan: Patient will be continued on telemetry monitoring. Initially EKG and troponin 1 negative. D-dimer is not elevated. Patient will be continued on heparin drip and cardiology was consulted. Recommends Cardiolite stress echocardiogram. Continue to follow closely. Further recommendations based on the clinical course. Time with Patient: Greater than 30
[2018-12-19] MEDS: SODIUM CHLORIDE 0.9% 1,000 ML IV SCH ×2 (04:51→12:51)
[2018-12-19] MEDS: NITROGLYCERIN OINT 1 INCH/GM PACKET TOPICAL SCH ×2 (04:52→12:54)
[2018-12-19 07:01] VITALS: RESP 16
[2018-12-19] MEDS ORDERED: NITROGLYCERIN SL TABS 0.4 MG TAB SUBLINGUAL PRN (07:50)
[2018-12-19] MEDS ORDERED: ATORVASTATIN 80 MG TAB PO STA (07:50)
[2018-12-19] MEDS ORDERED: ALPRAZolam 0.25 MG TAB PO PRN (07:50)
[2018-12-19] MEDS ORDERED: SODIUM CHLORIDE 0.9% 1,000 ML in EMPTY BAG 1 BAG IV ONE (07:50)
[2018-12-19] MEDS: ESCITALOPRAM 20 MG TAB PO SCH (08:06)
[2018-12-19] MEDS: ATENOLOL 25 MG TAB PO SCH (08:06)
--- NOTE | 2018-12-19 08:56 | ECHOF ---
Referral Reason:chest pain MEASUREMENTS -------- HEIGHT: 157.5 cm WEIGHT: 84.4 kg BP: 104/66 RVIDd: 2.7 cm (< 3.3) IVSd: 1.1 cm (0.6 - 1.1) LVIDd: 4.0 cm (3.9 - 5.3) LVPWd: 1.0 cm (0.6 - 1.1) IVSs: 1.3 cm LVIDs: 2.9 cm LVPWs: 1.5 cm LA Diam: 2.9 cm (2.7 - 3.8) LAESV Index (A-L): 14.47 ml/m Ao Diam: 3.4 cm (2.0 - 3.7) AV Cusp: 1.9 cm (1.5 - 2.6) MV EXCURSION: 13.341 mm (> 18.000) MV EF SLOPE: 36 mm/s (70 - 150) EPSS: 0.5 cm MV E Wai: 0.55 m/s MV DecT: 348 ms MV A Wai: 0.75 m/s MV E/A Ratio: 0.73 RAP: 5.00 mmHg RVSP: 29.15 mmHg FINDINGS -------- Sinus rhythm. This was a technically good study. The left ventricular size is normal. There is borderline concentric left ventricular hypertrophy. Overall left ventricular systolic function is normal with, an EF between 60 - 65 %. The right ventricle is normal in size and function. Normal LA size by volume 22+/-6 ml/m2. The right atrium is normal in size. Interatrial and interventricular septum intact. The aortic valve is trileaflet and appears structurally normal. The mitral valve is normal. Mild tricuspid regurgitation present. Right ventricular systolic pressure is normal at < 35 mmHg. There is no pulmonic regurgitation present. The aortic root size is normal. Normal inferior vena cava with normal inspiratory collapse consistent with estimated right atrial pre ssure of 5 mmHg. There is no pericardial effusion. CONCLUSIONS -------- 1. Sinus rhythm. 2. This was a technically good study. 3. The left ventricular size is normal. 4. There is borderline concentric left ventricular hypertrophy. 5. Overall left ventricular systolic function is normal with, an EF between 60 - 65 %. 6. The right ventricle is normal in size and function. 7. Normal LA size by volume 22+/-6 ml/m2. 8. The right atrium is normal in size. 9. Interatrial and interventricular septum intact. 10. The aortic valve is trileaflet and appears structurally normal. 11. The mitral valve is normal. 12. Mild tricuspid regurgitation present. 13. Right ventricular systolic pressure is normal at < 35 mmHg. 14. There is no pulmonic regurgitation present. 15. The aortic root size is normal. 16. Normal inferior vena cava with normal inspiratory collapse consistent with estimated right atrial pressure of 5 mmHg. 17. There is no pericardial effusion. HAND STAPLER: Tracey York RDCS
[2018-12-19] MEDS ORDERED: HEPARIN SODIUM 1,000 UN/ML (10ML VL) ONE (10:55)
[2018-12-19] MEDS ORDERED: VERAPAMIL 2.5 MG/ML 2 ML AMP ONE (10:55)
[2018-12-19] MEDS ORDERED: ASPIRIN 325 MG TAB ONE (10:55)
[2018-12-19] MEDS ORDERED: LIDOCAINE 1% INJ 10MG/ML (20 ML MDV) ONE (10:55)
[2018-12-19] MEDS ORDERED: MIDAZOLAM (PF) 2 MG/2 ML VIAL IVP ONE (11:15)
[2018-12-19] MEDS ORDERED: LIDOCAINE 1% INJ 10MG/ML (20 ML MDV) SQ ONE (11:17)
[2018-12-19] MEDS ORDERED: VERAPAMIL SYRINGE (5 MG/10 ML) INTRAARTER ONE ×2 (11:20→11:33)
[2018-12-19] MEDS ORDERED: fentaNYL (PF) 50 MCG/ML 2 ML AMP ONE (11:20)
[2018-12-19] MEDS ORDERED: fentaNYL (PF) 50 MCG/ML 2 ML AMP IVP ONE (11:25)
--- NOTE | 2018-12-19 11:26 | PN ---
PROGRESS NOTE Mrs Hammonds is doing well this morning. She had a abnormal stress test yesterday. She walked for about 10 minutes on a standard [place] protocol, but there is evidence of inferior and inferoseptal area of reversibility on the nuclear scan with ejection fraction of 56%. Given this, I recommended a coronary angiography. The rationale, risks, benefits, options were explained to the patient and in detail. They understand all details and wished to proceed with the procedure. The possibility of this being a false-positive also should be considered since patient walked for 10 minutes at a heart rate of 154 beats per minute. However, she did come in with chest pain and coronary angiography is advised. Patient and her understand all details and wished to proceed with the procedure. Vital signs are stable. S1-S2 heard normally. Lungs are clear. Abdomen and lower extremity exam unchanged. She had a Lovenox injection at 10:00 pm yesterday and received IV fluids. We will proceed with cardiac cath at 11:00 am today. CLIFFORD / KOBIN: [id number] /
[2018-12-19] MEDS ORDERED: IOPAMIDOL-370 100ML BTL INJ ONE (11:32)
[2018-12-19] MEDS: ASPIRIN 81 MG PO SCH (11:54)
[2018-12-19 11:57] VITALS: TEMP 97.4
--- NOTE | 2018-12-19 14:47 | CC ---
CARDIAC CATHETERIZATION REPORT DATE OF SERVICE: 12/19/2018. PROCEDURE: Left heart catheterization, coronary angiography. PERFORMED BY: Dr. Arianna Smith. SEDATION: Moderate conscious sedation time was 16 minutes. The patient was administered Versed, her oxygen saturation, hemodynamics and EKG were monitored closely. CLINICAL INFORMATION: Mrs. Bernabe Hammonds is a 43-year-old lady admitted to the hospital with chest pain and history of some palpitations. She had a stress test, walked for 10 minutes, but there was evidence of inferoseptal reversible defect suggestive of ischemia and therefore was advised coronary angiography. Risks, benefits, options, rationale were discussed with the patient and her . PROCEDURE NOTE: Under local anesthesia and strict aseptic precautions, a 6-Romanian introducer was placed in the right radial artery. Using an Ultimata 1 catheter, I performed selective coronary angiography of the left system. Using a JR4 catheter, I performed selective coronary angiography of the right coronary artery and a pigtail catheter was used to check LV pressures. LV gram was not performed. The sheath was taken out and TR band applied as per protocol. Saturation in the fingers of the right hand was 98%. Patient tolerated procedure well without complications. CARDIAC CATHETERIZATION FINDINGS: The left ventricular end-diastolic pressure was 12-13 mmHg without any gradient across aortic valve. CORONARY ANGIOGRAPHY FINDINGS: RIGHT CORONARY ARTERY: Dominant vessel. No significant disease distally bifurcates into PDA and PLV, both of which supply a sizable amount of myocardium. No significant disease. LEFT MAIN CORONARY ARTERY: Short patent vessel that bifurcates into LAD, circumflex and ramus intermedius. Left main itself is free of significant disease. LEFT ANTERIOR DESCENDING CORONARY ARTERY: Good caliber vessel extends along the anterior wall, gives off septal and diagonal branches, runs all the way to the apex supplies a sizable amount of myocardium. No significant disease. RAMUS INTERMEDIUS: Good caliber. Good distribution vessel that runs laterally, gives off another secondary branch, has minor irregularities. No significant disease. The ramus is a good caliber, good distribution vessel. CIRCUMFLEX CORONARY ARTERY: This is a single vessel that runs in the AV groove and comes out as a posterolateral branch, has minor irregularities. No significant disease. FINAL IMPRESSION: This patient has a right dominant system. Normal filling pressures. No gradient across aortic valve. No significant obstructive CAD. Stress test was probably a false positive one. MMODL / IJN: [id number] /
[2018-12-19 16:00] VITALS: BP 110/58; PULSE 65
[2018-12-20] MEDS ORDERED: ATORVASTATIN 80 MG TAB PO SCH (09:00)
== END 2018-12-19 18:05 | disposition home or self-care (01) | DRG 287 ==
LOC: EC 18:34 → 1SOBS 20:50 → OBSVTOIN 12-19 09:50
PROVIDERS: ADMIT Internal Medicine; ATTEND Internal Medicine
PROC: B2111ZZ Fluoroscopy of Multiple Coronary Arteries using Low Osmolar Contrast (ICD-10-PCS; 2018-12-19)
PROC: B2151ZZ Fluoroscopy of Left Heart using Low Osmolar Contrast (ICD-10-PCS; 2018-12-19)
PROC: 4A023N7 Measurement of Cardiac Sampling and Pressure, Left Heart, Percutaneous Approach (ICD-10-PCS; principal; 2018-12-19 11:00)
DX: R07.89 Other chest pain (principal); R06.02 Shortness of breath; R00.2 Palpitations; R94.39 Abnormal result of other cardiovascular function study; F32.9 Major depressive disorder, single episode, unspecified; I34.1 Nonrheumatic mitral (valve) prolapse; F41.0 Panic disorder [episodic paroxysmal anxiety]; I27.20 Pulmonary hypertension, unspecified; H91.90 Unspecified hearing loss, unspecified ear; F41.9 Anxiety disorder, unspecified; M19.90 Unspecified osteoarthritis, unspecified site; Z90.49 Acquired absence of other specified parts of digestive tract; Z90.710 Acquired absence of both cervix and uterus; Z87.442 Personal history of urinary calculi; Z79.899 Other long term (current) drug therapy; Z88.5 Allergy status to narcotic agent; Z88.6 Allergy status to analgesic agent; Z91.040 Latex allergy status
CPT/HCPCS: 36415; 71046; 78452; 80053; 80061; 83690; 83735; 83880; 84443; 84484; 85025; 85379; 85610; 85730; 93005; 93017; 93306; 93458; 96365; 96376; 99291

== ENCOUNTER 2019-09-08 09:22 | Emergency (ER) | payer OTHER ==
[2019-09-08 09:34] VITALS: RESP 16; TEMP 98
[2019-09-08] MEDS ORDERED: MECLIZINE 12.5 MG TAB PO STA (10:15)
[2019-09-08] MEDS ORDERED: SODIUM CHLORIDE 0.9% 1,000 ML IV STA (10:15)
[2019-09-08] MEDS ORDERED: diphenhydrAMINE 50 MG/ML 1 ML VIAL IVP STA (10:15)
--- NOTE | 2019-09-08 10:19 | ED ---
Dizziness HPI - General Chief Complaint: Dizziness Stated Complaint: Vertigo Time Seen by Provider: 09/08/19 10:01 Source: patient, family Mode of arrival: EMS Limitations: no limitations - History of Present Illness Initial Comments: Patient is a 43-year-old female presenting to the emergency department yet EMS with complaints of acute onset of dizziness. Patient states she woke up this morning and turned on her side when she felt overwhelming dizziness. She states the room was spinning. Patient states she sat up to go to the bathroom to get a drink of water and she felt like she might pass out. Patient states she had an extreme case of nausea and did vomit. Patient states she went back and laid down in her bed. She states she feels best when she is laying flat on her back and not moving. She states any movement of her head makes her very nauseous. In the EMS prior to arrival she received Zofran which did help with her nausea. Patient states she has never had this before. She denies any falls or trauma. She denies having a headache, blurry vision, chest pain, shortness of breath, cough. She denies any recent illnesses. She denies any recent changes in medications. She denies chance of secondary to hysterectomy. She has no other complaints at this time. Upon arrival to the ER, her vital signs are stable. - Related Data Home Medications Medication Instructions Recorded Confirmed Escitalopram [Lexapro] 10 mg PO DAILY 12/17/18 09/08/19 valACYclovir HCL [Valtrex] 1,000 mg PO BID PRN 12/17/18 09/08/19 Omeprazole [PriLOSEC] 20 mg PO DAILY 09/08/19 09/08/19 Previous Rx's Medication Instructions Recorded Meclizine [Antivert] 25 mg PO BID PRN 10 Days #20 tab 09/08/19 Ondansetron Odt [Zofran Odt] 4 mg PO Q8HR PRN #10 tab 09/08/19 Allergies Allergy/AdvReac Type Severity Reaction Status Date / Time codeine Allergy Unknown Verified 09/08/19 10:41 latex Allergy Swelling/Bu Verified 09/08/19 10:41 rning naproxen Allergy Swelling Verified 09/08/19 10:41 morphine AdvReac Nausea & Verified 09/08/19 10:41 Vomiting Review of Systems ROS Statement: Those systems with pertinent positive or pertinent negative responses have been documented in the HPI. ROS Other: All systems not noted in ROS Statement are negative. Past Medical History Past Medical History: Hearing Disorder / Deafness, Mitral Valve Prolapse (MVP), Osteoarthritis (OA) Additional Past Medical History / Comment(s): TRICUSPID PROLAPSE, SL MVP; PULMONARY HTN. WAS HAVING PROB W/ DIZZYNESS, BALANCE PROB - RESOLVED; SOME DYSPNEA OCC. LATER FOUND SHE HAD MIDDLE EAR INFECTION, COMPLETED PO AB RX. SOME DECR HEARING IN LT EAR. KIDNEY STONES, HAS VARICOSE VEINS History of Any Multi-Drug Resistant Organisms: None Reported Past Surgical History: Appendectomy, Cholecystectomy, Hernia Repair, Hysterectomy Additional Past Surgical History / Comment(s): removed kidney stone Past Anesthesia/Blood Transfusion Reactions: Motion Sickness, Postoperative Nausea & Vomiting (PONV) Past Psychological History: Anxiety, Depression, Panic Disorder Smoking Status: Never smoker Past Alcohol Use History: None Reported Past Drug Use History: None Reported - Past Family History Father Family Medical History: Cancer, Coronary Artery Disease (CAD), Deep Vein Thrombosis (DVT) Additional Family Medical History / Comment(s): stroke, quadrupel bypass, carotid surgery - FROM BLOOD CLOT FROM CAROTID TO BRAIN. Mother Additional Family Medical History / Comment(s): ANXIETY General Exam - General Exam Comments Initial Comments: GENERAL: Well-appearing, well-nourished and in no acute distress. Patient laying supine. HEAD: Atraumatic, normocephalic. EYES: Pupils equal round and reactive to light, extraocular movements intact, sclera anicteric, conjunctiva are normal. ENT: TMs normal, nares patent, oropharynx clear without exudates. Moist mucous membranes. NECK: Normal range of motion, supple without lymphadenopathy or JVD. LUNGS: Breath sounds clear to auscultation bilaterally and equal. No wheezes rales or rhonchi. HEART: Regular rate and rhythm without murmurs, rubs or gallops. ABDOMEN: Soft, nontender, normoactive bowel sounds. No guarding, no rebound. No masses appreciated. : Deferred EXTREMITIES: Normal range of motion, no pitting or edema. No clubbing or cyanosis. NEUROLOGICAL: Cranial nerves II through XII grossly intact. Normal speech, normal gait. Strength is 5 out of 5 and lower upper extremities. Sensation is equal in bilateral lower and upper extremities. PSYCH: Normal mood, normal affect. SKIN: Warm, Dry, normal turgor, no rashes or lesions noted. Limitations: no limitations Course Vital Signs 09/08/19 09/08/19 09/08/19 09:28 09:41 09:44 Temperature 98.0 F 98.0 F Pulse Rate 69 78 62 Respiratory 16 16 16 Rate Blood Pressure 106/62 106/67 142/98 O2 Sat by Pulse 94 L 97 100 Oximetry 09/08/19 09/08/19 11:35 13:05 Temperature Pulse Rate 67 72 Respiratory 16 16 Rate Blood Pressure 113/72 127/72 O2 Sat by Pulse 98 100 Oximetry EKG Findings - EKG Comments: EKG Findings:: Ventricular rate 57, AR interval 158, QTC 432. Sinus bradycardia, no acute ST segment changes, no signs ischemia. Similar to previous EKG in November 2018 Medical Decision Making - Medical Decision Making Patient is a 43-year-old female presenting with vertigo-type symptoms with acute onset this morning. Patient's exam is unremarkable. Patient is laying supine, any change in her head or neck position increase her symptoms. Patient vitals are stable. No chance for secondary to hysterectomy. EKG has no acute findings. Lab work shows no acute findings. Patient was started on meclizine as well as Benadryl and fluids. She reports only slight improvement in her symptoms. Patient is still not able to move her head without increase in symptoms. Patient was then given Reglan and scopolamine patch. Upon reevaluation, patient feels much improvement. Patient was able ambulate to the restroom without increase in her symptoms. She is sitting upright, Greyson had any distraction without symptoms. Patient states she feels stable to go home. Patient was given a prescription for Zofran and meclizine. She will follow up with her PCP. She is in agreement with this plan of care. Return parameters were discussed with the patient she verbalized understanding. Case discussed with Dr. Ruano. - Lab Data Result diagrams: 09/08/19 10:30 09/08/19 10:30 Lab Results 09/08/19 09/08/19 Range/Units 10:30 10:30 WBC 5.6 (3.8-10.6) k/uL RBC 4.90 (3.80-5.40) m/uL Hgb 15.5 (11.4-16.0) gm/dL Hct 46.5 H (34.0-46.0) % MCV 94.8 (80.0-100.0) fL MCH 31.6 (25.0-35.0) pg MCHC 33.3 (31.0-37.0) g/dL RDW 12.3 (11.5-15.5) % Plt Count 291 (150-450) k/uL Neutrophils % (Manual) 70 % Lymphocytes % (Manual) 22 % Monocytes % (Manual) 6 % Eosinophils % (Manual) 2 % Neutrophils # (Manual) 3.92 (1.3-7.7) k/uL Lymphocytes # (Manual) 1.23 (1.0-4.8) k/uL Monocytes # (Manual) 0.34 (0-1.0) k/uL Eosinophils # (Manual) 0.11 (0-0.7) k/uL Nucleated RBCs 0 (0-0) /100 WBC Manual Slide Review Performed Sodium 137 (137-145) mmol/L Potassium 4.3 (3.5-5.1) mmol/L Chloride 105 (98-107) mmol/L Carbon Dioxide 26 (22-30) mmol/L Anion Gap 6 mmol/L BUN 10 (7-17) mg/dL Creatinine 0.51 L (0.52-1.04) mg/dL Est GFR (CKD-EPI)AfAm >90 (>60 ml/min/1.73 sqM) Est GFR (CKD-EPI)NonAf >90 (>60 ml/min/1.73 sqM) Glucose 96 (74-99) mg/dL Calcium 8.7 (8.4-10.2) mg/dL Total Bilirubin 0.4 (0.2-1.3) mg/dL AST 20 (14-36) U/L ALT 15 (4-34) U/L Alkaline Phosphatase 59 (38-126) U/L Total Protein 6.8 (6.3-8.2) g/dL Albumin 3.9 (3.5-5.0) g/dL Disposition Clinical Impression: Vertigo, Nausea & vomiting Disposition: HOME SELF-CARE Condition: Stable Instructions (If sedation given, give patient instructions): Vertigo (ED) Additional Instructions: Please return to the Emergency Department if symptoms worsen or any other concerns. Continue with meclizine and Zofran as needed. Trial of Claritin or Zyrtec for 1 week. Follow-up with PCP in 1-3 days. Prescriptions: Meclizine [Antivert] 25 mg PO BID PRN 10 Days #20 tab PRN Reason: Vertigo Ondansetron Odt [Zofran Odt] 4 mg PO Q8HR PRN #10 tab PRN Reason: Nausea Is patient prescribed a controlled substance at d/c from ED?: No Referrals: Jose Diaz DO [Primary Care Provider] - 1-2 days
[2019-09-08 10:42] LABS: HCT 46.5 % (34.0-46.0); HGB 15.5 gm/dL (11.4-16.0); MCH 31.6 pg (25.0-35.0); MCHC 33.3 g/dL (31.0-37.0); MCV 94.8 fL (80.0-100.0); Platelet Count 291 k/uL (150-450); RDW 12.3 % (11.5-15.5); WBC 5.6 k/uL (3.8-10.6)
[2019-09-08 10:54] LABS: ALT 15 U/L (4-34); AST 20 U/L (14-36); African American GFR (CKD) >90 (>60 ml/min/1.73 sqM); Albumin 3.9 g/dL (3.5-5.0); Alkaline Phosphatase 59 U/L (38-126); Anion Gap 6 mmol/L; Blood Urea Nitrogen 10 mg/dL (7-17); Calcium 8.7 mg/dL (8.4-10.2); Carbon Dioxide 26 mmol/L (22-30); Chloride 105 mmol/L (98-107); Glucose 96 mg/dL (74-99); Non-African American GFR(CKD) >90 (>60 ml/min/1.73 sqM); Potassium 4.3 mmol/L (3.5-5.1); Sodium 137 mmol/L (137-145); Total Bilirubin 0.4 mg/dL (0.2-1.3); Total Protein 6.8 g/dL (6.3-8.2)
[2019-09-08 11:09] LABS: Eosinophils # (M) 0.11 k/uL (0-0.7); Lymphocytes # (M) 1.23 k/uL (1.0-4.8); Monocytes # (M) 0.34 k/uL (0-1.0); Neutrophils # (M) 3.92 k/uL (1.3-7.7); Neutrophils % (M) 70 %; Nucleated Red Blood Cells 0 /100 WBC (0-0); Total Cells Counted 100
[2019-09-08] MEDS ORDERED: SCOPOLAMINE 1.5MG/72HR PATCH TRANSDERM STA (11:16)
[2019-09-08] MEDS ORDERED: METOCLOPRAMIDE 5 MG/ML 2 ML VIAL IVP STA (11:16)
[2019-09-08 13:06] VITALS: BP 127/72; PULSE 72
== END 2019-09-08 12:55 | disposition home or self-care (01) ==
LOC: EC 09:22
DX: R42 Dizziness and giddiness (principal); R11.2 Nausea with vomiting, unspecified; H91.92 Unspecified hearing loss, left ear; F32.9 Major depressive disorder, single episode, unspecified; F41.0 Panic disorder [episodic paroxysmal anxiety]; Z88.5 Allergy status to narcotic agent; Z88.6 Allergy status to analgesic agent; Z91.040 Latex allergy status; Z79.899 Other long term (current) drug therapy; Z90.710 Acquired absence of both cervix and uterus; Z90.49 Acquired absence of other specified parts of digestive tract
CPT/HCPCS: 36415; 93005; 80053; 85025; 99284; 96374; 96375; 96361 ×2; J1200; J2765